=== PATIENT | male | born 2000 | race American Indian/Alaskan Native ===

== ENCOUNTER 2021-01-02 02:30 | Emergency (ER) | payer SELFPAY ==
[2021-01-02 04:27] VITALS: BP 136/67
--- NOTE | 2021-01-02 04:56 | Event Note ---
ED Screening Note Date of service: 01/02/21 Time: 04:54 ED Screening Note: Patient is a 20-year-old -[place] male with no past medical history who was brought to the ED by his mother after he started talking to himself, calling names of people were not present, hearing voices, and threatening to harm himself and others for the last 2 days. Mother states that they took away the patient's weapons at home after the patient said sending threatening text messages. Mother states the patient has not been evaluated for psychiatric or mental disorders, and that the patient has been living home and getting lost intermittently for the last 1 month. Mother states that she would like the p atient evaluated for mental health. Patient himself complains of itchy dry scaly rash on his back with chest tightness. Patient however denies suicidal or homicidal ideation, dizziness, syncope, shortness of breath, abdominal pain, nausea and vomiting or diarrhea. This initial assessment/diagnostic orders/clinical plan/treatment(s) is/are subject to change based on patients health status, clinical progression and re- assessment by fellow clinical providers in the ED. Further treatment and workup at subsequent clinical providers discretion. Patient/guardian urged not to elope from the ED as their condition may be serious if not clinically assessed and managed. Initial orders include: CBC, CMP, UA UA, UDS, blood alcohol, TSH, salicylate, acetaminophen
--- NOTE | 2021-01-02 05:11 | Emergency Department Report ---
ED Psych HPI - General Chief Complaint: Psych Stated Complaint: MENTAL HEALTH/COUGH/RASH Source: patient Mode of arrival: Ambulatory - History of Present Illness Initial Comments: Patient is a 20-year-old -[place] male with a history of anxiety and depression who presents to the ED with acute onset persistent diffuse itchy dry scaly rashes on his posterior thoracic area which persistent dry cough for the last 1 week. Patient states that he has not been able to sleep because of persistent itching and chest tightness, due to his anxiety from the rashes on his back. The patient's mother states that the patient has been talking to himself, and hearing voices and at one time about 2 days ago the family had to hide the weapons from him because he was behaving abnormally and the fear that he might harm himself. Mother states that he would like the patient evaluated for mental health. Patient however denies suicidal or homicidal ideation, chest pain or shortness of breath, nausea and vomiting, diarrhea, dizziness, syncope, fever and chills or headache. MD Complaint: feels depressed, other (itchy dry rashes; anxious) -: Sudden, days(s) (2) Associated Psychiatric Symptoms: depression, auditory hallucinations, delusions History of same: Yes Quality: constant Improves With: none Worsens With: none Associated Symptoms: denies other symptoms. denies: confusion, headache, shortness of breath, nausea, vomiting, syncope, insomnia Treatments Prior to Arrival: none Details of Plan: No suicidal or homicidal ideations - Related Data Previous Rx's Medication Instructions Recorded Last Taken Type Brompheniramine/Pseudoephed/Dm 5 ml PO Q6H #118 ml 01/02/21 Unknown Rx [Bromfed Dm Cough Syrup] Nystatin Oint [Mycostatin Oint] 1 applicatio TP BID #1 tube 01/02/21 Unknown Rx hydrOXYzine PAMOATE [Vistaril] 25 mg PO Q6HR PRN #30 capsule 01/02/21 Unknown Rx ED Review of Systems ROS: Stated complaint: MENTAL HEALTH/COUGH/RASH Other details as noted in HPI Constitutional: denies: chills, fever Eyes: denies: eye pain, eye discharge, vision change ENT: congestion. denies: ear pain, throat pain Respiratory: cough. denies: shortness of breath, wheezing Cardiovascular: denies: chest pain, palpitations Endocrine: no symptoms reported Gastrointestinal: denies: abdominal pain, nausea, diarrhea Genitourinary: denies: urgency, dysuria Musculoskeletal: denies: back pain, joint swelling, arthralgia Skin: rash (mild itchy rashes on posterior mid thoracic area). denies: lesions Neurological: denies: headache, weakness, paresthesias Psychiatric: anxiety, depression, auditory hallucinations. denies: homicidal thoughts, suicidal thoughts Hematological/Lymphatic: denies: easy bleeding, easy bruising ED Past Medical Hx - Past Medical History Hx Psychiatric Treatment: Yes (anxiety, bipolar, schizophrenia) - Medications Home Medications: Home Medications Medication Instructions Recorded Confirmed Last Taken Type Brompheniramine/Pseudoephed/Dm 5 ml PO Q6H #118 ml 01/02/21 Unknown Rx [Bromfed Dm Cough Syrup] Nystatin Oint [Mycostatin Oint] 1 applicatio TP BID #1 tube 01/02/21 Unknown Rx hydrOXYzine PAMOATE [Vistaril] 25 mg PO Q6HR PRN #30 capsule 01/02/21 Unknown Rx ED Physical Exam - General Limitations: No Limitations General appearance: alert, in no apparent distress - Head Head exam: Present: atraumatic, normocephalic, normal inspection - Eye Eye exam: Present: normal appearance, PERRL, EOMI Pupils: Present: normal accommodation - ENT ENT exam: Present: normal exam, normal orophraynx, mucous membranes moist, TM's normal bilaterally, normal external ear exam - Neck Neck exam: Present: normal inspection, full ROM - Respiratory Respiratory exam: Present: normal lung sounds bilaterally. Absent: respiratory distress, wheezes, rales, rhonchi, chest wall tenderness, decreased breath sounds, prolonged expiratory - Cardiovascular Cardiovascular Exam: Present: normal rhythm, bradycardia, normal heart sounds. Absent: systolic murmur, diastolic murmur, rubs, gallop - GI/Abdominal GI/Abdominal exam: Present: soft, normal bowel sounds. Absent: tenderness, guarding, hyperactive bowel sounds, hypoactive bowel sounds - Extremities Exam Extremities exam: Present: normal inspection, full ROM, normal capillary refill - Back Exam Back exam: Present: normal inspection, full ROM. Absent: tenderness, CVA tenderness (R), CVA tenderness (L), muscle spasm, paraspinal tenderness, vertebral tenderness - Neurological Exam Neurological exam: Present: alert, oriented X3, CN II-XII intact, normal gait, reflexes normal - Psychiatric Psychiatric exam: Present: depressed, anxious, flat affect. Absent: homicidal ideation, suicidal ideation - Skin Skin exam: Present: warm, dry, intact, normal color, rash (Dry scaly rashes diffusely on mid posterior thoracic area), vesicles. Absent: erythema, abrasion, ecchymosis ED Course Vital Signs 01/02/21 03:55 Temperature 98.1 F Pulse Rate 51 L Respiratory 18 Rate Blood Pressure 136/67 O2 Sat by Pulse 100 Oximetry ED Medical Decision Making - Medical Decision Making This is a 20-year-old -[place] male with a history of anxiety and depression who presents to the ED with acute onset persistent diffuse itchy dry scaly rashes on his posterior thoracic area which persistent dry cough for the last 1 week. Patient states that he has not been able to sleep because of persistent itching and chest tightness, due to his anxiety from the rashes on his back. The patient's mother states that the patient has been talking to himself, and hearing voices and at one time about 2 days ago the family had to hide the weapons from him because he was behaving abnormally and the fear that he might harm himself. Mother states that he would like the patient evaluated for mental health. In the ED, patient is alert and oriented x3 and is not in any distress, appears anxious, pacing back and forth in the room but cooperative on physical exam. I offered to have mental evaluation with basic labs for medical clearance but the patient declined any lab work and asked to be discharged home because he does not want to be in the ED and only wants to be treated for cough and the rash that brought him to the ER. Patient is hemodynamically stable, is alert and oriented x3, is stable to make his own decisions and is not homicidal or suicidal at this time. Patient was therefore discharged from the ED with prescription for tinea corporis and cough medications. Patient was advised to follow-up with his mental health physician or counselor in 3 to 5 days for reevaluation or return to the ED immediately if his symptoms get worse. - Differential Diagnosis Bronchitis; tinea corporis; anxiety, depression Critical care attestation.: If time is entered above; I have spent that time in minutes in the direct care of this critically ill patient, excluding procedure time. ED Disposition Clinical Impression: Anxiety as acute reaction to exceptional stress, Tinea corporis, Psychiatric symptoms Acute bronchitis Qualifiers: Bronchitis organism: other organism Qualified Code(s): J20.8 - Acute bronchitis due to other specified organisms Disposition: HOME / SELF CARE / HOMELESS Is pt being admited?: No Does the pt Need Aspirin: No Condition: Stable Instructions: Generalized Anxiety Disorder, Adult, Body Ringworm, Acute Bronchitis, Adult, [id number], Acute Bronchitis (ED) Additional Instructions: Take medication as advised, drink plenty of fluids and follow-up with the primary care physician or psychiatric physician as advised. Return to the ED immediately if symptoms get worse. Prescriptions: Brompheniramine/Pseudoephed/Dm [Bromfed Dm Cough Syrup] 5 ml PO Q6H #118 ml Nystatin Oint [Mycostatin Oint] 1 applicatio TP BID #1 tube hydrOXYzine PAMOATE [Vistaril] 25 mg PO Q6HR PRN #30 capsule PRN Reason: Anxiety [facility] Time of Disposition: 05:07 Print Language: TOGOLESE
== END 2021-01-02 06:06 | disposition home or self-care (01) ==
LOC: ED 02:30
DX: J20.8 Acute bronchitis due to other specified organisms (principal); F41.1 Generalized anxiety disorder; F43.0 Acute stress reaction; B35.4 Tinea corporis; F99 Mental disorder, not otherwise specified; F25.0 Schizoaffective disorder, bipolar type; Z79.899 Other long term (current) drug therapy
CPT/HCPCS: 99282